=== PATIENT | female | born 1965 | race Hispanic/Latino ===

== ENCOUNTER 2018-02-14 11:47 | Emergency (ER) | payer OTHER ==
[~2018-02-14 11:47] MED LIST: LEVO125T11 PO
[2018-02-16 02:14] LABS: HEPATITIS A ANTIBODY IGM Negative (Negative); HEPATITIS B CORE IGM Negative (Negative); HEPATITIS Bs ANTIGEN SCREEN P Negative (Negative)
== END 2018-02-14 13:00 | disposition home or self-care (01) ==
LOC: EDH 11:47
DX: S61.031A Puncture wound without foreign body of right thumb without damage to nail, initial encounter (principal); W46.0XXA Contact with hypodermic needle, initial encounter; Y93.89 Activity, other specified; Y92.89 Other specified places as the place of occurrence of the external cause; Y99.8 Other external cause status
CPT/HCPCS: 36415; 80074; 86701; 87390

== ENCOUNTER → 2019-12-28 | Outpatient (CLI) | payer BC | END | disposition home or self-care (01) | LOC: RAH 16:27 | PROVIDERS: ATTEND Physical Medicine & Rehabilitation | DX: M47.816 Spondylosis without myelopathy or radiculopathy, lumbar region (principal); M54.5 Low back pain; M54.2 Cervicalgia | CPT/HCPCS: 72040; 72100 ==

== ENCOUNTER 2020-02-14 05:55 | Day surgery (SDC) | payer BC ==
[2020-02-09 10:40] LABS: BASOPHILS % (AUTO) 1.1 % (0.0-5.0); EOSINOPHILS % (AUTO) 1.9 % (0.0-8.0); HEMATOCRIT 44.6 % (36-48); LYMPHOCYTES % (AUTO) 47.4 % (21.0-51.0); MEAN CORPUSCULAR HEMOGLOBIN 29.1 pg (27.0-33.0); MEAN CORPUSCULAR HGB CONC 33.6 g/dL (32.0-36.0); MEAN CORPUSCULAR VOLUME 86.4 fL (79-99); MONOCYTES % (AUTO) 6.8 % (3.0-13.0); NEUTROPHILS % (AUTO) 42.6 % (40.0-77.0); PLATELET COUNT (AUTO) 202 K/uL (130-400); RED BLOOD CELL COUNT(AUTO) 5.16 MIL/uL (4.00-5.50); RED CELL DISTRIBUTION WIDTH 12.3 % (11.0-15.5); WHITE BLOOD COUNT (AUTO) 5.3 K/uL (4.8-10.8)
[2020-02-09 10:54] LABS: POTASSIUM 4.7 mmol/L (3.5-5.1)
[2020-02-13 08:52] VITALS: BP 146/72
[~2020-02-14] VITALS: Ht 152.4 cm; Wt 69.4 kg
[2020-02-14] VITALS (11 sets, daily range): BP systolic 101–120; BP diastolic 41–66
[2020-02-14] MEDS ORDERED: LACTATED RINGERS 1000ML 1,000 ML IV ONE (06:07)
[2020-02-14] MEDS: CEFAZOLIN SODIUM 1 GM VIAL IVP SCH ×2 (06:20→07:30)
[2020-02-14] MEDS ORDERED: MIDAZOLAM HCL 1 MG/ML 2ML VIAL ONE (06:56)
[2020-02-14] MEDS ORDERED: FENTANYL CITRATE PF 50 MCG/1 ML 2ML VIAL ONE ×2 (06:57→07:44)
[2020-02-14] MEDS ORDERED: LIDOCAINE HCL-MPF 0.5% 50ML VIAL IJ ONE (06:58)
[2020-02-14] MEDS ORDERED: ONDANSETRON HCL 4 MG/2 ML VIAL ONE (09:12)
== END 2020-02-14 09:45 | disposition home or self-care (01) ==
LOC: DAH 05:55
PROVIDERS: ATTEND Neurological Surgery
DX: G56.01 Carpal tunnel syndrome, right upper limb (principal); Z20.828 Contact with and (suspected) exposure to other viral communicable diseases
CPT/HCPCS: 36415; 64721; 80051; 85025; A4215; A4221; A4222; A4223; A4663; A6260; C9803; J0690; J2250; J2405; J3010 ×2; J3490; J7120; U0003

== ENCOUNTER 2020-03-13 05:45 | Day surgery (SDC) | payer BC ==
[2020-03-12 11:31] VITALS: BP 139/77
[~2020-03-13] VITALS: Ht 149.9 cm; Wt 70.7 kg
[2020-03-13] VITALS (12 sets, daily range): BP systolic 102–131; BP diastolic 56–78
[2020-03-13] MEDS ORDERED: LACTATED RINGERS 1000ML 1,000 ML IV ONE (06:38)
[2020-03-13] MEDS ORDERED: LIDOCAINE HCL-MPF 0.5% 50ML VIAL IJ ONE (06:57)
[2020-03-13] MEDS ORDERED: FENTANYL CITRATE PF 50 MCG/1 ML 2ML VIAL ONE (07:04)
[2020-03-13] MEDS ORDERED: MIDAZOLAM HCL 1 MG/ML 2ML VIAL ONE (07:04)
[2020-03-13] MEDS: CEFAZOLIN SODIUM 1 GM VIAL ONE ×2 (07:12→09:09)
[2020-03-13] MEDS ORDERED: LIDOCAINE PF 2% 5ML ABBOJECT ONE (07:54)
[2020-03-13] MEDS ORDERED: ONDANSETRON HCL 4 MG/2 ML VIAL ONE (08:51)
== END 2020-03-13 10:30 ==
LOC: DAH 05:45
PROVIDERS: ATTEND Neurological Surgery
DX: G56.03 Carpal tunnel syndrome, bilateral upper limbs (principal); Z79.899 Other long term (current) drug therapy; Z20.828 Contact with and (suspected) exposure to other viral communicable diseases
CPT/HCPCS: 64721; A4215; A4221; A4222; A4223; A4663; A6260; C9803; J0690; J2001; J2250; J2405; J3010; J3490; J7120; U0003

== ENCOUNTER → 2021-11-07 | Outpatient (CLI) | payer BC | END | disposition home or self-care (01) | LOC: SHCH 07:42 | PROVIDERS: ATTEND Internal Medicine Cardiovascular Disease | DX: R07.9 Chest pain, unspecified (principal); R06.00 Dyspnea, unspecified; E78.5 Hyperlipidemia, unspecified; E03.9 Hypothyroidism, unspecified | CPT/HCPCS: 93306 ==